=== PATIENT | male | born 1935 | race Asian ===

== ENCOUNTER 2018-06-25 15:10 | Inpatient (IN) | payer MEDICARE, OTHER ==
[~2018-06-25] VITALS: Ht 161.3 cm; Wt 63.5 kg
[2018-06-25] MEDS ORDERED: SODIUM CHLORIDE 0.9% 1,000 ML IV ONE (15:41)
[2018-06-25 16:24] LABS: CHLORIDE 110 mEq/L (98-107); INR 1.1; PROTHROMBIN TIME 10.7 sec (9.1-11.1)
[2018-06-25 16:28] LABS: BASOPHILS % 0.6 % (0.0-2.0); EOSINOPHILS % 6.8 % (0.0-5.0); HEMATOCRIT. 36.5 % (42.0-52.0); HEMOGLOBIN. 12.2 g/dL (14.0-18.0); LYMPHOCYTES % 13.2 % (20.0-50.0); MEAN CORPUSCULAR HEMOGLOBIN 31.2 pg (28.0-32.0); MEAN CORPUSCULAR VOLUME 93.5 fL (80.0-94.0); MEAN PLATELET VOLUME 8.7 fl (7.4-10.4); MONOCYTES % 7.6 % (2.0-8.0); NEUTROPHILS % 71.8 % (40.0-76.0); PLATELET 158 x1000/uL (130-400); RED CELL DISTRIBUTION WIDTH 13.8 % (11.6-14.6)
[2018-06-25 17:49] LABS: CLARITY URINE CLEAR (CLEAR); COLOR URINE DARK YELLOW (YELLOW); KETONES URINE TRACE (NEGATIVE); LEUKOCYTE ESTERASE URINE NEGATIVE (NEGATIVE); NITRITE URINE NEGATIVE (NEGATIVE); OCCULT BLOOD URINE NEGATIVE (NEGATIVE); PH URINE 5.5 (4.5-8.0); PROTEIN URINE TRACE (NEGATIVE); SPECIFIC GRAVITY URINE 1.022 (1.005-1.030)
[2018-06-25] MEDS ORDERED: ASPIRIN 325MG TABLET PO ONE (18:15)
[2018-06-25] MEDS ORDERED: CLONIDINE 0.1MG TABLET PO PRN (19:30)
[2018-06-25 23:37] LABS: CREATINE KINASE MB FRACTION 1.3 ng/mL (0.5-3.6)
[2018-06-26] VITALS: BP_SYST 137; BP_SYST 142; BP_SYST 147; BP_DIAS 76; BP_DIAS 87; BP_DIAS 88
[2018-06-26] MEDS ORDERED: ALLO300T2 PO (00:01)
[2018-06-26] MEDS ORDERED: ESOM20CA PO (00:01)
[2018-06-26] MEDS ORDERED: ASPI-1159 PO (00:02)
[2018-06-26] MEDS ORDERED: LOSA50TA20 PO (00:02)
[2018-06-26 00:21] VITALS: BP 142/87
[2018-06-26] MEDS ORDERED: FINA5TAB11 PO (00:28)
[2018-06-26 04:00] VITALS: BP 131/65
[2018-06-26 07:39] LABS: BASOPHILS % 1.1 % (0.0-2.0); EOSINOPHILS % 14.5 % (0.0-5.0); HEMATOCRIT. 34.4 % (42.0-52.0); HEMOGLOBIN. 11.5 g/dL (14.0-18.0); LYMPHOCYTES % 17.8 % (20.0-50.0); MEAN CORPUSCULAR HEMOGLOBIN 31.3 pg (28.0-32.0); MEAN CORPUSCULAR VOLUME 93.3 fL (80.0-94.0); MEAN PLATELET VOLUME 8.9 fl (7.4-10.4); MONOCYTES % 9.7 % (2.0-8.0); NEUTROPHILS % 56.9 % (40.0-76.0); PLATELET 152 x1000/uL (130-400); RED BLOOD CELL COUNT 3.69 mill/uL (4.7-6.1)
[2018-06-26 07:50] LABS: CHLORIDE 113 mEq/L (98-107)
[2018-06-26 08:00] VITALS: BP 161/72
[2018-06-26 08:05] LABS: LDL CHOLESTEROL 61 mg/dL (5-100)
[2018-06-26 08:09] LABS: HDL CHOLESTEROL 39 mg/dL (40-59)
[2018-06-26 08:11] LABS: CREATINE KINASE MB FRACTION 2.4 ng/mL (0.5-3.6)
[2018-06-26] MEDS ORDERED: ASPIRIN 81MG TABLET PO SCH (11:00)
[2018-06-26] MEDS ORDERED: LOSARTAN POTASSIUM 25 MG TABLET PO SCH (11:00)
[2018-06-26] MEDS ORDERED: PANTOPRAZOLE 40MG DR TABLET PO SCH (11:30)
[2018-06-26 12:00] VITALS: BP 132/63
[2018-06-26 15:40] VITALS: BP 132/63
== END 2018-06-26 16:45 | disposition home or self-care (01) | DRG 312 ==
LOC: ER 15:10 → 5WST 18:15 → ENRESERV 20:02
PROVIDERS: ADMIT Internal Medicine Critical Care Medicine; ATTEND Internal Medicine Critical Care Medicine
DX: I95.2 Hypotension due to drugs (principal); I10 Essential (primary) hypertension; K21.9 Gastro-esophageal reflux disease without esophagitis; M10.9 Gout, unspecified; M19.90 Unspecified osteoarthritis, unspecified site; Z96.1 Presence of intraocular lens; N40.0 Benign prostatic hyperplasia without lower urinary tract symptoms; Z79.899 Other long term (current) drug therapy; Z86.73 Personal history of transient ischemic attack (TIA), and cerebral infarction without residual deficits; Z87.442 Personal history of urinary calculi; Z98.41 Cataract extraction status, right eye; Z98.42 Cataract extraction status, left eye; Z99.81 Dependence on supplemental oxygen; Z90.49 Acquired absence of other specified parts of digestive tract
CPT/HCPCS: 36415; 71045; 80048; 80061; 82553; 83605; 84443; 84484; 84550; 93005; 93880; 96360; 96361; 97162; 99291; J7030